=== PATIENT | male | born 1955 | race Caucasian/White ===

== ENCOUNTER 2024-03-04 07:17 | Day surgery (SDC) | payer MEDICARE, SELFPAY ==
[2024-03-03 11:03] VITALS: BMI 31.4
[2024-03-04 07:30] VITALS: BP 101/62; PULSE 80; RESP 18; O2SAT 96; BMI 31.4
[2024-03-04] MEDS: LACTATED RINGERS 1000ML 1,000 ML 25 ML IV (07:39)
[2024-03-04 07:59] VITALS: O2SAT 96
--- NOTE | 2024-03-04 08:01 | P.HP_ITS ---
History of Present Illness *Admission Date: 03/04/24 *Reason for visit:: History of polyps/screening *History of present illness: Mr. Grace is a 69-year-old gentleman who is here for follow-up surveillance colonoscopy secondary to a personal history of colon polyps. The examination is deemed medically necessary for colonoscopy. The patient has been seen, interviewed and examined prior to the procedure by both myself and the anesthesia provider. [facility] Disclaimer: The information contained in this section may have been updated after the patient was seen, as this information can be updated by other users. Medical History Atrial fibrillation Hypertension Surgical History Hx of inguinal hernia surgery Family History Other No significant family history Social History (Updated 03/04/24 @ 08:03 by Migdalia Yi CRNA) Smoking Status: Former smoker alcohol intake: never substance use type: denies use current occupational status: retired Travel in the last 8 weeks: None caffeine: No Meds Home Medications and Allergies Home Medications ?Medication ?Instructions ?Recorded ?Confirmed ?Type apixaban 5 mg (74 tabs) tablets in 5 mg PO DAILY Blood thinner 11/10/18 03/03/24 History a dose pack ([employer] DVT-PE Treat 30D Start) doxazosin 2 mg tablet (Cardura) 4 mg PO DAILY bladder 11/10/18 03/04/24 History lisinopril 10 mg tablet 10 mg PO DAILY bp 11/10/18 03/04/24 History sod picosulf 10 mg-magnes 3.5 175 ml PO DAILY Bowel Prep 2 doses 02/23/24 Rx gram-citric 12 gram/175 mL oral #350 mL solution (Clenpiq) metoprolol tartrate 100 mg tablet 100 mg PO DAILY 03/03/24 03/04/24 History New Prescriptions to Start Prescriptions: Allergies Allergy/AdvReac Type Severity Reaction Status Date / Time No Known Allergies Allergy Verified 03/03/24 11:16 Exam Data for Last 24 hours Vital signs and Labs for Last 24 Hours: Pulse Resp BP Pulse Ox O2 Del Method 80 18 101/62 L 96 Room Air 03/04/24 07:30 03/04/24 07:30 03/04/24 07:30 03/04/24 07:30 03/04/24 07:30 I & O for Last 24 hours: Intake & Output 03/01/24 03/02/24 03/03/24 03/04/24 23:59 23:59 23:59 23:59 Weight 210 lb 210 lb *Routine HEENT Exam Head: Present normocephalic Eye: Present EOMI ENT: Present mucous membranes moist *Routine Respiratory Exam Respiratory: Present symmetric chest movement *Routine Cardiovascular Exam Cardiovascular: Present irregularly irregular *Routine Abdominal Exam Abdominal: Present soft *Routine Rectal Exam Rectal:: normal sphincter tone *Routine Genitalia Exam Genitalia:: normal male Assessment and Plan *Assessment and plan (1) Personal history of colonic polyps: Status: Acute Category: Medical Code(s): Z86.0100 - Personal history of colon polyps, unspecified (2) Screening for colon cancer: Status: Acute Category: Medical Code(s): Z12.11 - Encounter for screening for malignant neoplasm of colon Plan A/P: 1. Personal history of colon polyps/screening and surveillance is the preprocedural diagnosis. The patient will be anesthetized/sedated using MAC sedation. The patient has been seen and examined. Cardiac and lung assessment prior to the examination is stable. Proceed with planned colonoscopy
--- NOTE | 2024-03-04 08:02 | P.PNANES_ITS ---
[facility] Disclaimer: The information contained in this section may have been updated after the patient was seen, as this information can be updated by other users. Medical History Atrial fibrillation Hypertension Surgical History Hx of inguinal hernia surgery Family History Other No significant family history Social History Smoking Status: Former smoker alcohol intake: never substance use type: denies use current occupational status: retired Travel in the last 8 weeks: None caffeine: No [facility] Anesthesia Checklist Patient Identification Patient Identification: Arm Band and Verbal (Name & ) Structural Data Admitted From: Home Planned Operative Procedure/s: Colonoscopy Consent for Planned Operative Procedure(s) Verified: Yes Verified Documents: Surgical Consent and History and Physical NPO Status Verified Time NPO: 00:00 Additional verifications Anesthesia Reactions: No Airway Assessment Mallampati Score:: Class III C-Spine Mobility Assessed: Yes TMJ Mobility Assessed: Yes Dentition: Partials Neurological Assessment Level of Consciousness: Awake Hx Seizures: No Numbness or tingling in extremities: No Anesthesia Plan Anesthesia Risk discussed: Yes Anesthesia Plan: Verified ASA Class: III Anesthesia Type: MAC
--- NOTE | 2024-03-04 08:07 | P.PCN_ITS ---
[facility] Procedure Note Date: 03/04/24 Time: 08:22 Procedure Note:: Colonoscopy Procedure Report: Colonoscopy with cold snare polypectomy and Endo Clip placement Endoscopist: Clarence Patel II, MD Referring physician: Steve Wilson MD Date of Procedure: March 04, 2024 Equipment: Olympus 190 variable stiffness pediatric colonoscope Sedation: MAC sedation Indication: Mr. Grace is a 69-year-old gentleman who is here for follow-up screening/surveillance colonoscopy. His last colonoscopy was October 2018 at which time he had a single diminutive 5 mm tubular adenoma removed. The patient reports no abdominal pain, weight loss, change in his bowel habits or rectal bleeding. He reports no family history of colon cancer. Procedure: Prior to the procedure, a history and physical exam was performed, and patient's medications and allergies were reviewed. The risks, benefits and alternatives of the sedation and procedure were discussed with the patient. All questions were answered and informed consent was obtained. The patient was brought to the procedure room. Patient identification and proposed procedure were verified by the physician and the nurse. The patient was placed in a left lateral decubitus position and the scope was passed under direct vision. Throughout the pro cedure, the patient's blood pressure, pulse, and oxygen saturations were monitored continuously. The colonoscopy was accomplished without difficulty. The patient tolerated the procedure well. Findings: On digital rectal examination there was normal rectal tone. There were no external hemorrhoids. The prostate was 2+, smooth, soft, symmetric without nodules. The colonoscope was introduced through the anal canal to the rectum and advanced to the cecum. The ileocecal valve and appendiceal orifice were identified. The scope was advanced a short distance into the ileum which appeared grossly normal. The scope was then withdrawn into the colon. There were 2 polyps in the colon (ascending x 1 (7 mm) and transverse x 1 (4 mm)). Both of these were removed via cold snare polypectomy and both sent in the ascending formalin jar. There was some minor heme at the ascending polypectomy site so a single Endo Clip was placed to provide hemostasis. This was primarily done because the patient is on Eliquis (stopped 3 days ago). The remaining cecum, ascending and transverse colon and mucosa were grossly normal. There were scattered diverticuli throughout the descending and sigmoid colon (LEFT colon). The rectum itself was normal. Upon retroflexion within the rectum there were grade 1-2 internal hemorrhoids. The preparation was excellent throughout with Mellen Preparation Score of 9. The cecal time was 11 minutes. Impression: 1. Colonic polyps x 2 (4 and 7 mm) 2. Left-sided diverticulosis 3. Grade 1-2 internal hemorrhoids Plan: I will follow up the polyp pathology and recommend repeat colonoscopy again in 5-7 years based upon the polyp histology. This will be based upon the patient's good health and desire to continue preventative surveillance. I would encourage bulking fiber supplementation on a long-term daily maintenance basis.
[2024-03-04 08:26] VITALS: BP 90/55; PULSE 96; RESP 16; TEMP 36.2; O2SAT 97
[2024-03-04 08:36] VITALS: BP 103/59; PULSE 100; RESP 16; O2SAT 94
[2024-03-04 08:46] VITALS: BP 110/72; PULSE 94; RESP 16; O2SAT 96
[2024-03-04 08:56] VITALS: BP 119/77; PULSE 90; RESP 16; O2SAT 97
== END 2024-03-04 09:07 | disposition home or self-care (01) ==
PROVIDERS: PCP Family Medicine; Visit Provider Internal Medicine Gastroenterology
PROC: (CPT 45385; principal; 2024-03-04 08:30)
DX: Z86.0101 Personal history of adenomatous and serrated colon polyps (principal); K63.5 Polyp of colon; K57.30 Diverticulosis of large intestine without perforation or abscess without bleeding; K64.8 Other hemorrhoids
CPT/HCPCS: 45385; 88305; 99221; J7120